=== PATIENT | male | born 1985 | race Caucasian/White ===

== ENCOUNTER 2017-03-18 16:24 | Emergency (ER) | payer OTHER ==
--- NOTE | 2017-03-18 17:45 | RADIOLOGY REPORT (SQ) ---
EXAM DESCRIPTION: RIBS RIGHT W/PA CHEST COMPLETED DATE/TIME: 03/18/2017 5:22 pm REASON FOR STUDY: rib pain COMPARISON: None. TECHNIQUE: Frontal view of the chest and additional views of the right ribs acquired. NUMBER OF VIEWS: Three views LIMITATIONS: None. FINDINGS: FRONTAL CXR: No pneumothorax. No pleural effusion. No atelectasis or infiltrates. RIBS: No displaced rib fractures. No lytic or blastic bony lesions. OTHER: No other significant finding. IMPRESSION: NO PNEUMOTHORAX. NO DISPLACED RIB FRACTURES. COMMENT: SITE OF TRAUMA/COMPLAINT MARKED/STAMP COMPLETED: No TECHNICAL DOCUMENTATION: JOB ID: [id number] [employer]- All Rights Reserved
[2017-03-18] MEDS ORDERED: HYDROCODONE/ACETAMINOPHEN 5-325 MG 6 TAB/DSPK PO PRN (17:59)
[2017-03-18] MEDS ORDERED: HYDROCODONE/ACETAMINOPHEN 5-325 MG TABLET PO ONE (17:59)
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
[2017-03-18 18:22] VITALS: BP 126/86
== END 2017-03-18 18:20 | disposition home or self-care (01) ==
LOC: ER 16:24
DX: S20.211A Contusion of right front wall of thorax, initial encounter (principal); R07.81 Pleurodynia; F17.200 Nicotine dependence, unspecified, uncomplicated; W50.0XXA Accidental hit or strike by another person, initial encounter
CPT/HCPCS: 99283